=== PATIENT | male | born 1950 | race Caucasian/White ===

== ENCOUNTER 2017-02-19 13:03 | Day surgery (SDC) | payer MEDICARE, BC ==
[~2017-02-19] VITALS: Ht 170.2 cm; Wt 75.9 kg
[~2017-02-19 13:03] MED LIST: HYDR-3580; LORA0.5T; LOSA50TA; METF500T
[2017-02-19 13:28] VITALS: BP 183/104; PULSE 100; RESP 20; TEMP 97.6; O2SAT 98
[2017-02-19] MEDS ORDERED: SODIUM CHLOR 0.9% 1000 ML IV SCH (13:30)
[2017-02-19 14:25] LABS: AUTOMATED NEUTROPHIL # 7.5 TH/MM3 (1.8-7.7); BASOPHIL # 0.1 TH/MM3 (0-0.2); BASOPHIL % 1.2 % (0.0-2.0); EOSINOPHIL # 0.1 TH/MM3 (0-0.4); EOSINOPHIL % 0.9 % (0.0-4.0); HEMATOCRIT 43.5 % (39.0-51.0); LYMPH % 14.9 % (9.0-44.0); LYMPHOCYTE # 1.5 TH/MM3 (1.0-4.8); MEAN CELL VOLUME 87.7 FL (80.0-100.0); MEAN CORPUSCULAR HEMOGLOBIN 30.4 PG (27.0-34.0); MEAN CORPUSCULAR HGB CONC 34.6 % (32.0-36.0); MEAN PLATELET VOLUME 7.4 FL (7.0-11.0); MONO % 8.3 % (0.0-8.0); MONOCYTE # 0.8 TH/MM3 (0-0.9); NEUT % 74.7 % (16.0-70.0); PLATELET COUNT 478 TH/MM3 (150-450); RED BLOOD COUNT 4.95 MIL/MM3 (4.50-5.90); RED CELL DISTRIBUTION WIDTH 14.7 % (11.6-17.2); WHITE BLOOD COUNT 10.1 TH/MM3 (4.0-11.0)
[2017-02-19 14:29] LABS: INTERNATIONAL NORMALIZED RATIO 1.1 RATIO; PROTHROMBIN TIME - PATIENT 10.8 SEC (9.8-11.6)
[2017-02-19] MEDS ORDERED: HYDROmorphone HCL PF 2 MG/ML VIAL ONE (16:31)
[2017-02-19 17:00] VITALS: BP 207/105; PULSE 111; RESP 18; O2SAT 96
--- NOTE | 2017-02-19 17:17 | RADRPT ---
EXAM DATE/TIME: 02/19/2017 16:10 [place] COMPARISON: No previous studies available for comparison. INDICATIONS : Patient with history of discitis in need of disc biopsy of T12-L1. MEDICAL HISTORY : 1.Neck cancer 2.HTN 3.DM 4.Cervical fracture 5.Cardiac disease 6.Pulmonary disease SURGICAL HISTORY : 1.Cataracts 2.Splenectomy 3.Cervical fusion x 2 ENCOUNTER: Initial ACUITY: 7 - 11 months PAIN SCORE: 10/10 Lower back. FLUORO TIME: 5.4 minutes IMAGE SERIES: 2 SEDATION TIME: 30 minutes MEDICATION(S): 1.) 200 mcg fentanyl (Sublimaze) IV 2.) 2 mg midazolam (Versed) IV DEVICE(S): 1.) 22 gauge needle Aspirate was obtained and submitted to laboratory for pathologic evaluation. PROCEDURE : 1. Fluoroscopically guided needle biopsy. 2. Conscious sedation with continuous EKG and Oximetry monitoring. The risks, benefits and alternatives to the procedure were explained and verbal and written consent w as obtained. The site was prepped in sterile fashion. Full sterile technique was used, including cap, mask, steri le gloves and gown and a large sterile sheet. Hand hygiene and 2% chlorhexidine and/or betadine/alco hol prep was utilized per protocol for cutaneous antisepsis. The skin and subcutaneous tissues were infiltrated with local anesthetic solution. With fluoroscopic guidance, a 22 gauge spinal needle was introduced to the T12-L1 intervertebral disc space. Aspiration was performed within the central disc space. A small volume of bloody aspirate was submitted and culture bile for requested evaluation. Conscious sedation was performed with the prescribed dosages and duration as above in the presence of an independent trained radiology nurse to assist in the monitoring of the patient. EKG and oximetry remained stable throughout the procedure. CONCLUSION: Uncomplicated needle aspiration of T12-L1 intervertebral disc as above. Paul Chan MD on February 19, 2017 at 17:13 Board Certified Radiologist. This report was verified electronically.
[2017-02-19] MEDS ORDERED: ACETAMINOPHEN/HYDROcodone 325 MG/10 MG TAB PO ONE (17:30)
== END 2017-02-19 17:45 | disposition home or self-care (01) ==
LOC: HROP 13:03 → HRIP 13:06 → HROP 17:45
PROVIDERS: ATTEND Neurological Surgery
DX: M46.45 Discitis, unspecified, thoracolumbar region (principal); B95.4 Other streptococcus as the cause of diseases classified elsewhere
CPT/HCPCS: 62267; 77003; 85025; 85610; 85730; 87015; 87070; 87102; 87116; 87186; 87205; 87206; 99152; 99153; J1170; J3010